=== PATIENT | female | born 1990 | race Caucasian/White ===

== ENCOUNTER 2018-07-29 19:41 | Emergency (ER) | payer BC ==
[~2018-07-29] VITALS: Ht 172.7 cm; Wt 74.4 kg
[2018-07-29 20:29] VITALS: BP 116/72
--- NOTE | 2018-07-29 20:35 | NUR ---
PT BIBSELF C/O BILATERAL FLANK PAIN X3 DAYS. -DYSURIA, -FREQ, - URGENCY +NAUSEA. PT AOX4. NAD NOTED. RESP EVEN AND UNLABORED. FAMILY AT BEDSIDE. PT ON MONITOR IN BED 10. WILL CONTINUE TO MONITOR.
--- NOTE | 2018-07-29 21:44 | NUR ---
URINE COLLECTED AND SENT TO LAB
[2018-07-29 21:51] LABS: APPEARANCE,URINE Slightly Cloudy (CLEAR); BILIRUBIN,URINE MODERATE (NEGATIVE); BLOOD, URINE Large Ery/uL (NEGATIVE); COLOR,URINE Red (YELLOW); KETONES,URINE Trace (NEGATIVE); LEUKOCYTE ESTERASE ,URINE Large (NEGATIVE); NITRITE, URINE Negative (NEGATIVE); PROTEIN,URINE >=300 mg/dl (NEGATIVE); UGLUCOSE Negative (NEGATIVE)
[2018-07-29 22:02] LABS: BACTERIA,URINE Few /HPF (None Seen); RBC,URINE TOO NUMEROUS TO COUN /HPF (0-2); SQUAMOUS EPITHELIAL CELL,UR Few /HPF (None Seen)
== END 2018-07-29 22:37 | disposition home or self-care (01) ==
LOC: ER 19:46
DX: N39.0 Urinary tract infection, site not specified (principal); M54.5 Low back pain; Z98.890 Other specified postprocedural states
CPT/HCPCS: 81000-TC; 84703-TC; 87086-TC